=== PATIENT | male | born 1985 | race Caucasian/White ===

== ENCOUNTER 2021-11-05 20:43 | Emergency (ER) | payer BC, OTHER ==
[2021-11-05 21:02] VITALS: BP 138/95; PULSE 101; RESP 16; TEMP 98.5; BMI 28.5
== END 2021-11-05 22:46 | disposition home or self-care (01) ==
LOC: FER 20:43
DX: S86.011A Strain of right Achilles tendon, initial encounter (principal); Y93.79 Activity, other specified sports and athletics
CPT/HCPCS: 73610-TC-RT-FY; 73630-TC-RT-FY; 76882-TC-RT; 99284-25

== ENCOUNTER 2021-11-12 06:03 | Day surgery (SDC) | payer BC, OTHER ==
[2021-11-06 15:28] VITALS: BMI 28.5
[2021-11-12] MEDS ORDERED: ROPIVACAINE HCL/PF 100 MG/20 ML VIAL ONE (07:34)
[2021-11-12] MEDS ORDERED: MIDAZOLAM HCL 2 MG/2 ML SINGLE DOSE VIAL ONE ×2 (07:34→07:59)
[2021-11-12] MEDS ORDERED: SUCCINYLCHOLINE CHLORIDE 200 MG/10 ML SYRINGE ONE (07:59)
[2021-11-12] MEDS ORDERED: DEXAMETHASONE SOD PHOSPHATE 4 MG/1 ML VIAL ONE (07:59)
[2021-11-12] MEDS ORDERED: PROPOFOL 20 ML ONE (07:59)
[2021-11-12] MEDS ORDERED: KETOROLAC TROMETHAMINE 30 MG/1 ML VIAL ONE (07:59)
[2021-11-12] MEDS ORDERED: ceFAZolin SODIUM 1 GM VIAL ONE (07:59)
[2021-11-12] MEDS ORDERED: ONDANSETRON 4 MG/2 ML VIAL ONE (07:59)
[2021-11-12] MEDS ORDERED: oxyCODONE HCL 5 MG TABLET PO PRN ×2 (09:20)
[2021-11-12] MEDS ORDERED: ACETAMINOPHEN 325 MG TABLET (FP) PO PRN (09:21)
[2021-11-12] MEDS ORDERED: ONDANSETRON 4 MG TABLET PO PRN (09:22)
[2021-11-12 10:09] VITALS: RESP 16
[2021-11-12 11:24] VITALS: TEMP 98.1
[2021-11-12 13:11] VITALS: BP 125/65; PULSE 56
== END 2021-11-12 13:25 | disposition home or self-care (01) ==
LOC: FASU 06:03
PROVIDERS: ATTEND Orthopaedic Surgery
PROC: 0LQN0ZZ Repair Right Lower Leg Tendon, Open Approach (ICD-10-PCS; principal; 2021-11-12 08:15)
DX: S86.011A Strain of right Achilles tendon, initial encounter (principal); X58.XXXA Exposure to other specified factors, initial encounter; Y93.9 Activity, unspecified; Y92.9 Unspecified place or not applicable
CPT/HCPCS: 82962; 94760